=== PATIENT | female | born 1970 | race Caucasian/White ===

== ENCOUNTER 2016-08-09 09:29 | Emergency (ER) ==
[2016-08-09] MEDS ORDERED: ASPIRIN PO ONE (10:47)
--- NOTE | 2016-08-09 10:47 | EKG Report ---
Test Performed on : 08/09/2016 09:40:37 AM Test Reason : chest pain/SOB Blood Pressure : / mmHG Vent. Rate : 086 BPM Atrial Rate : 086 BPM P-R Int : 136 ms QRS Dur : 086 ms QT Int : 400 ms P-R-T Axes : 045 015 027 degrees QTc Int : 478 ms Normal sinus rhythm. Normal ECG When compared with ECG of 20-JUN-2007 10:45, No significant change was found Unconfirmed Result
[2016-08-09 10:51] LABS: MANUAL DIFF NEEDED? NO
[2016-08-09 10:52] LABS: BASO% 0.5 % (0.0-0.8); EOS% 2.2 % (0.0-10.0); HEMATOCRIT 37.3 % (37.0-47.0); HEMOGLOBIN 12.9 g/dL (12.0-16.0); IMM GRAN# 0.02 X1000 (0.0-0.04); IMM GRAN% 0.2 % (0.0-0.5); LYMPH# 2.19 X1000 (1.2-3.4); MCH 28.8 PG (27-31); MCHC 34.6 g/dL (33-37); MCV 83.3 FL (81-99); MONO# 0.57 X1000 (0.11-0.59); MONO% 6.3 % (1.7-9.3); MPV 11.7 FL (7.4-10.4); NEUT% 66.8 % (42.2-75.2); PLT 287 X1000 (130-400); RBC 4.48 XMIL (4.2-5.4)
--- NOTE | 2016-08-09 10:53 | PROVIDER DOCUMENTATION ---
HPI-Chest Pain - General Chief Complaint: Shortness of Breath Stated Complaint: CHEST PAIN/SOB Time Seen by Provider: 08/09/16 10:37 Source: patient Allergies/Adverse Reactions: Patient Allergies Allergy/AdvReac Type Severity Reaction Status Date / Time codeine Allergy Severe palpitation Verified 08/09/16 09:34 s bupropion HCl * Allergy RASH Verified 08/09/16 09:34 [From Wellbutrin] Home Medications: Home Medication List Medication Instructions Recorded Confirmed Last Taken Type Celecoxib [Celebrex] See Taper PO DAILY #20 capsule 03/26/16 Unknown Rx Acetaminophen E.r. 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 She has no family hx of heart issues. She quit smoking almost 1 year ago. She has HTN but is not on medications since quitting smoking. She is a diet controlled diabetic. Location: reports: substernal Chest Pain Radiation: reports: arms (left arm tingling) Quality of Pain: reports: aching Severity in ED: mild Onset/Duration: this morning ([id number]) Context/Activities at Onset: reports: moderate activity Modifying Factors: improves with: nothing Associated Symptoms: reports: shortness of breath Nitro Today/Relief: no nitro taken today Aspirin Treatment Today: 325 mg x 1, provided by ED Prior Chest Pain/Cardiac Workup: reports: no prior chest pain, no prior cardiac workup Similar Symptoms Previously?: No Recently Seen Here or By Another Healthcare Provider: No Review of Systems - Adult - REVIEW OF SYSTEMS - ADULT Constitutional: reports: no symptoms reported Eyes: reports: no symptoms reported Ears, Nose, Mouth & Throat: reports: no symptoms reported Cardiovascular: reports: see HPI, chest pain Respiratory: reports: see HPI, shortness of breath Gastrointestinal: reports: no symptoms reported Genitourinary: reports: no symptoms reported Musculoskeletal: reports: no symptoms reported Integumentary: reports: no symptoms reported Neurological: reports: no symptoms reported Psychiatric: reports: no symptoms reported Endocrine: reports: no symptoms reported Hematologic/Lymphatic: reports: no symptoms reported Allergic/Immunologic: reports: no symptoms reported All Other Systems: Reviewed and Negative Past History - Adult - PAST MEDICAL HISTORY-ADULT Review of Records: reports: Old Records Reviewed, Nursing Assessment Review, Medications Reviewed, Social history reviewed & non-contributory. Cardiovascular: reports: cardiac disease, HTN, hyperlipidemia Respiratory: reports: sleep apnea Gastrointestinal: reports: GERD Endocrine/Immune: reports: Diabetes Diabetes Type: Type 2 Diabetes controlled by:: Diet - PRIOR SURGERIES/PROCEDURES Surgical/Procedure History: reports: appendectomy, hysterectomy - IMMUNIZATION STATUS Childhood Immunizations: See Nurse Assessment Flu Vaccine: See Nurse Assessment - SOCIAL HISTORY Smoking: quit less than 1 year Substance Use: denies Alcohol Use Frequency: never Living Situation: family Physical Exam-General - PHYSICAL EXAM-ADULT Initial Vital Signs Reviewed: Yes - CONSTITUTIONAL General Appearance: appears well, alert, no apparent distress - EYES Eyes: PERRL/EOMI, pink conjunctivae - HEAD, EARS, NOSE, MOUTH & THROAT HENMT: normocephalic/atraumatic, moist mucous membranes - RESPIRATORY Respiratory: lungs clear, normal breath sounds, no respiratory distress - CARDIOVASCULAR Cardiovascular: normal peripheral pulses, regular rate, rhythm, no edema - GASTROINTESTINAL (ABDOMEN) Abdominal Exam: soft - MUSCULOSKELETAL Extremity: non-tender, normal inspection, no pedal edema Peripheral Pulses: radial (R): 2+, radial (L): 2+, dorsalis-pedis (R): 2+, dorsalis-pedis (L): 2+ - SKIN Integumentary: normal color, normal turgor, warm/dry - NEUROLOGIC Neurologic: grossly normal - PSYCHIATRIC Psych/Mental Status: normal mood/affect, normal thought content, normal thought process, oriented x 3 Progress - PLAN OF CARE/RESULTS Progress/Plan/Lab Results: 1230-Discussed results/dx/tx/discharge and follow up instructions; patient verbalized understanding. Laboratory Tests 08/09/16 08/09/16 08/09/16 09:47 09:47 09:47 WBC RBC Hgb Hct MCV MCH MCHC RDW Std Deviation Plt Count MPV Immature Gran % (Auto) Neut % (Auto) Lymph % (Auto) [place] % (Auto) Eos % (Auto) Baso % (Auto) Immature Gran # (Auto) Neut # (Auto) Lymph # (Auto) [place] # (Auto) Eos # (Auto) Baso # (Auto) D-Dimer Sodium 137 Potassium 3.9 Chloride 101 Carbon Dioxide 23 L Anion Gap 13 BUN 24 H Creatinine 0.7 Estimated GFR/1.73 m2 > 60 BUN/Creatinine Ratio 34 Glucose 110 H Calculated Osmolality 279 Calcium 9.5 Total Bilirubin 0.20 AST 19 ALT 21 Alkaline Phosphatase 114 H Creatine Kinase 93 Troponin T < 0.010 Bsn-D-Ruthpjjghba Pept 106 Total Protein 7.9 Albumin 4.5 Globulin 3.0 Albumin/Globulin Ratio 1.0 08/09/16 08/09/16 08/09/16 09:47 11:10 11:53 WBC 9.12 RBC 4.48 Hgb 12.9 Hct 37.3 MCV 83.3 MCH 28.8 MCHC 34.6 RDW Std Deviation 13.0 Plt Count 287 MPV 11.7 H Immature Gran % (Auto) 0.2 Neut % (Auto) 66.8 Lymph % (Auto) 24.0 [place] % (Auto) 6.3 Eos % (Auto) 2.2 Baso % (Auto) 0.5 Immature Gran # (Auto) 0.02 Neut # (Auto) 6.09 Lymph # (Auto) 2.19 [place] # (Auto) 0.57 Eos # (Auto) 0.20 Baso # (Auto) 0.05 D-Dimer < 0.22 L Sodium Potassium Chloride Carbon Dioxide Anion Gap BUN Creatinine Estimated GFR/1.73 m2 BUN/Creatinine Ratio Glucose Calculated Osmolality Calcium Total Bilirubin AST ALT Alkaline Phosphatase Creatine Kinase 78 Troponin T Opj-F-Jfhfbxdtbgh Pept Total Protein Albumin Globulin Albumin/Globulin Ratio 08/09/16 11:53 WBC RBC Hgb Hct MCV MCH MCHC RDW Std Deviation Plt Count MPV Immature Gran % (Auto) Neut % (Auto) Lymph % (Auto) [place] % (Auto) Eos % (Auto) Baso % (Auto) Immature Gran # (Auto) Neut # (Auto) Lymph # (Auto) [place] # (Auto) Eos # (Auto) Baso # (Auto) D-Dimer Sodium Potassium Chloride Carbon Dioxide Anion Gap BUN Creatinine Estimated GFR/1.73 m2 BUN/Creatinine Ratio Glucose Calculated Osmolality Calcium Total Bilirubin AST ALT Alkaline Phosphatase Creatine Kinase Troponin T < 0.010 Lrh-R-Jyqnxgixrhz Pept Total Protein Albumin Globulin Albumin/Globulin Ratio Orders Category Date Time Status CHEST-2 VIEWS [RAD] Stat Exams 08/09/16 10:44 Completed CBC WITH ELECTRONIC DIFF [HEME] Stat Lab 08/09/16 09:47 Completed CK PROFILE [SP CHEM] Stat Lab 08/09/16 09:47 Completed CK PROFILE [SP CHEM] Stat Lab 08/09/16 11:53 Completed COMPREHENSIVE METABOLIC PANEL [CHEM] Stat Lab 08/09/16 09:47 Com[address] D-DIMER PL [COAG] Stat Lab 08/09/16 11:10 Completed PRO B-NATRIURETIC PEPTIDE Stat Lab 08/09/16 09:47 Completed TROPONIN T Stat Lab 08/09/16 09:47 Completed TROPONIN T Stat Lab 08/09/16 11:53 Completed Aspirin Med 08/09/16 10:47 Discontinued 325 mg PO NOW ONE EKG [EKG] Stat Ther 08/09/16 10:44 Draft EKG [EKG] Stat Ther 08/09/16 11:45 Draft - REASSESSMENT Reassessment #1 Time Reassessed: 12:30 Status: improving - XRAY 1 XRAY Study: Chest Impression: Normal XRAY Interpretation: Interpreted by Dr. Osborne Departure - Departure Time of Disposition Order: 12:39 DIAGNOSIS: Shortness of breath, Chest pain on exertion Disposition: HOME 01 Certified Medical Emergency: Emergent Condition: Good Additional Instructions: Follow up with PCP for possible stress test. Continue home medications. ED Follow Up Instructions: You have been treated by a care provider in the Emergency Department. These instructions are being provided to you so you can have an understanding of how to care for yourself upon discharge. Upon discharge from the Emergency Department, you are responsible for making arrangements for follow-up care by a physician of your choice. Take all prescribed medications as directed. Return to the Emergency Department immediately for any new or worsening symptoms. You may call the Physician Referral phone number at [phone] to obtain a list of Physicians who are taking new patients. Referrals: Chey Brewer MD [Primary Care Provider] - Forms: Return to School/Parent Work Instructions: Nonspecific Chest Pain, [id number] Attestation - Physician/ SAVANNAH Attestation Patient care was provided by Advanced Practice Provider:: Yes Advanced Practice Provider:: María Mann Advanced Practice Provider documentation review:: The Mid-level provider documentation, treatment plan and medical decision making was reviewed by the physician who agrees with all treatment and medical decision making by the MLP.
[2016-08-09 11:03] LABS: AGAP 13; ALBUMIN 4.5 g/dL (3.5-5.0); ALKALINE PHOSPHATASE 114 U/L (32-104); BUN 24 mg/dL (8-22); CALCIUM 9.5 mg/dL (8.8-10.2); CHLORIDE 101 mmol/L (98-107); CK PROFILE 93 U/L (24-173); COSMO 279; GOT 19 U/L (10-30); GPT 21 U/L (10-36); POTASSIUM 3.9 mmol/L (3.5-5.1); SODIUM 137 mmol/L (136-145); TCO2 23 mmol/L (25-35); TOTAL PROTEIN 7.9 g/dL (6.3-8.3)
--- NOTE | 2016-08-09 11:08 | ED EKG INTERP ---
EKG Interpretation - EKG Time of EKG reading by physician:: 09:40 EKG Read and Signed by:: Js Marinelli EKG Interpretation (*Must complete 3 of following elements*): Normal Rate: 86 Rhythm: normal sinus rhythm Comments: normal ECG Attestation - Scribe Verification/Attestation Scribe:: Micki Lewis Acting as Scribe for:: Js Marinelli Scribe documention review:: This chart was documented by a scribe and accurately reflects the service the provider performed and the decisions made by the provider.
--- NOTE | 2016-08-09 11:36 | EKG Report ---
Test Performed on : 08/09/2016 11:14:38 AM Test Reason : repeat cardiac protocol Blood Pressure : / mmHG Vent. Rate : 084 BPM Atrial Rate : 084 BPM P-R Int : 140 ms QRS Dur : 084 ms QT Int : 410 ms P-R-T Axes : 049 022 029 degrees QTc Int : 484 ms Normal sinus rhythm. Prolonged QT Abnormal ECG When compared with ECG of 09-AUG-2016 09:40, (Unconfirmed) No significant change was found Unconfirmed Result
--- NOTE | 2016-08-09 12:11 | Diag Imaging Result Document ---
PROCEDURE NAME: CHEST-2 VIEWS - 08/09/2016 CHEST X-RAY, TWO VIEWS: COMPARISON: 01/24/2015. FINDINGS: The lungs are normally expanded and clear. Heart size and mediastinal contours are normal. No pneumothorax or pleural effusion. IMPRESSION: Negative exam.
[2016-08-09 12:29] VITALS: BP 128/77
== END 2016-08-09 12:50 | disposition home or self-care (01) ==
LOC: P.ED 09:29
DX: R07.89 Other chest pain (principal); R06.02 Shortness of breath; R20.0 Anesthesia of skin; R20.2 Paresthesia of skin; R94.31 Abnormal electrocardiogram [ECG] [EKG]; I10 Essential (primary) hypertension; E78.5 Hyperlipidemia, unspecified; K21.9 Gastro-esophageal reflux disease without esophagitis; E11.9 Type 2 diabetes mellitus without complications; Z87.891 Personal history of nicotine dependence; Z79.899 Other long term (current) drug therapy
CPT/HCPCS: 36415; 71020; 80053; 82550; 83880; 84484; 85025; 85379; 93005; 99284